=== PATIENT | male | born 1980 | race African-American/Black ===

== ENCOUNTER 2017-10-11 21:43 | Emergency (ER) | payer OTHER ==
[~2017-10-11] VITALS: Ht 193 cm; Wt 123.8 kg
[2017-10-11 23:09] VITALS: BP 160/100
== END 2017-10-11 23:10 ==
LOC: EME 21:43
PROC: 3E0234Z Introduction of Serum, Toxoid and Vaccine into Muscle, Percutaneous Approach (ICD-10-PCS; principal; 2017-10-11)
PROC: 0HQ3XZZ Repair Left Ear Skin, External Approach (ICD-10-PCS; principal; 2017-10-11)
DX: S01.312A Laceration without foreign body of left ear, initial encounter (principal); X99.8XXA Assault by other sharp object, initial encounter; Y92.149 Unspecified place in prison as the place of occurrence of the external cause; J45.909 Unspecified asthma, uncomplicated; I10 Essential (primary) hypertension; Z87.891 Personal history of nicotine dependence
CPT/HCPCS: 99281; 99284